=== PATIENT | male | born 1995 | race Caucasian/White ===

== ENCOUNTER 2019-01-29 13:20 | Emergency (ER) | payer MEDICAID ==
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
--- NOTE | 2019-01-29 14:47 | CT Report ---
Reason: Head trauma Procedure Date: 01/29/2019 Accession Number: [id number] / [id number] Procedure: CT - HEAD WO CPT Code: FULL RESULT: EXAM: CT HEAD WITHOUT IV CONTRAST EXAM DATE: 01/29/2019 02:39 PM. CLINICAL HISTORY: Head trauma. COMPARISON: None. TECHNIQUE: Multiaxial CT images were obtained from the foramen magnum to the vertex. Reformats: Sagittal and coronal. IV contrast: None. In accordance with CT protocol optimization, one or more of the following dose reduction techniques were utilized for this exam: automated exposure control, adjustment of mA and/or KV based on patient size, or use of iterative reconstructive technique. FINDINGS: Parenchyma: No intraparenchymal hemorrhage. No evidence of mass, midline shift, or CT findings of infarction. Pina-white differentiation is distinct. Extraaxial Spaces: Normal for age. No subdural or epidural collections identified. Ventricles: Normal in size and position. Sinuses and Orbits: Imaged paranasal sinuses, orbits, and mastoids show no significant abnormality. Bones: No evidence of fracture or calvarial defect. Other: Prominent soft tissue hematoma is noted over the right vertex extracranially. IMPRESSION: Extracranial superficial hematoma without intracranial abnormality detected. [facility]
[2019-01-29 15:32] VITALS: BP 131/70
== END 2019-01-29 15:35 | disposition home or self-care (01) ==
LOC: ED 13:20
DX: S01.01XA Laceration without foreign body of scalp, initial encounter (principal); Y04.2XXA Assault by strike against or bumped into by another person, initial encounter; Y92.143 Cell of prison as the place of occurrence of the external cause; F17.200 Nicotine dependence, unspecified, uncomplicated
CPT/HCPCS: 12002; 70450; 99283